=== PATIENT | female | born 1955 | race Caucasian/White ===

== ENCOUNTER 2021-05-25 22:30 | Emergency (ER) | payer OTHER, SELFPAY ==
--- NOTE | ~2021-05-25 | XR_ITS ---
XR chest 2V DATE: 05/25/2021 23:22 INDICATION: Left-sided chest pain, fever, shortness of breath TECHNIQUE: PA and lateral views COMPARISON: 01/22/2017 two-view chest FINDINGS: Normal heart size. Aortic calcification and unfolding. No hilar or mediastinal enlargement. No pulmonary infiltrate or consolidation, pleural effusion or pulmonary vascular congestion or pneum othorax. Status post cholecystectomy. IMPRESSION: No active cardiopulmonary disease Reviewed, dictated and finalized at location A.
[2021-05-25 22:33] VITALS: BP 152/103; PULSE 93; RESP 18; TEMP 36.2; O2SAT 96
--- NOTE | 2021-05-25 22:38 | ECG_ITS ---
Measurements Intervals Supply Rate: 94 P: 40 KS: 152 QRS: -14 QRSD: 66 T: 30 QT: 333 QTc: 417 Interpretive Statements SINUS RHYTHM LOW QRS VOLTAGE IN PRECORDIAL LEADS ANTEROSEPTAL INFARCT, AGE INDETERMINATE CONSIDER INFERIOR INFARCT, AGE INDETERMINATE ABNORMAL ECG Electronically Signed On 05-26-2021 6:42:47 CDT by Westley Ocampo D.O.
[2021-05-25 22:56] LABS: Glucose Point of Care 409 mg/dl (65-105)
[2021-05-25 23:04] LABS: Basophils Absolute Auto 0.1 K/mm3 (0.0-0.1); Basophils Percent Auto 0.5 % (0.2-1.2); Eosinophils Absolute Auto 0.3 K/mm3 (0-0.3); Eosinophils Percent Auto 2.6 % (0-4.4); Hemoglobin 14.2 g/dL (12.0-15.0); Immature Granulocyte Absolute 0.07 K/mm3 (0.00-0.031); Immature Granulocyte Percent A 0.5 % (0-0.5); Lymphocytes Percent Auto 20.9 % (18.3-44.2); Mean Corpuscular HGB Conc 32.3 g/dl (32-36); Mean Corpuscular Hemoglobin 27.8 pg (26-34); Mean Corpuscular Volume 86.1 fl (80-100); Mean Platelet Volume 9.7 fl (7.4-10.4); Monocytes Absolute Auto 0.8 K/mm3 (0.1-0.6); Monocytes Percent Auto 6.3 % (2.6-8.5); Neutrophils Percent Auto 69.2 % (45.5-73.1); Platelet Count Result 277 k/mm3 (150-375); Red Blood Count 5.11 M/mm3 (4.2-5.4); Red Cell Distribution Width 13.6 % (11.5-14.5); White Blood Count 12.9 K/mm3 (4.5-10.0)
[2021-05-25 23:14] LABS: INR 0.9; Lactic Acid Reflex 2.4 mmol/L (0.7-2.1); Prothrombin Time 11.7 Seconds (11.1-14.7)
[2021-05-25 23:15] LABS: Partial Thromboplastin Time 22.2 SECONDS (22.3-36.8)
[2021-05-25 23:18] LABS: Alanine Aminotransferase 21 U/L (4-35); Albumin Level 4.5 g/dL (3.5-5.1); Alkaline Phosphatase 153 U/L (38-126); Anion Gap 10 mmol/L (8-16); Aspartate Amino Transferase 20 U/L (14-36); Bilirubin,Total 0.3 mg/dL (0.2-1.3); Blood Urea Nitrogen 23 mg/dL (7-17); CRP 1.5 mg/dL (<1.0); Calcium 10.1 mg/dL (8.4-10.2); Carbon Dioxide 26 mmol/L (22-30); Chloride 97 mmol/L (98-107); Estimated CRCL calculation 59 ml/min; Estimated Glomerular Filt Rate > 60; Glucose 415 mg/dL (65-110); Potassium 4.5 mmol/L (3.4-5.0); Sodium 133 mmol/L (137-145)
[2021-05-25 23:57] VITALS: BP 160/90; PULSE 92; RESP 18; TEMP 36.7; O2SAT 99
[2021-05-26] VITALS (9 sets, daily range): BP systolic 149–168; BP diastolic 66–90; PULSE 80–92; RESP 15–19; O2SAT 97–100
--- NOTE | 2021-05-26 00:32 | ED.FEVER ---
HPI - Fever General Chief Complaint: Fever Stated Complaint: Fever Time Seen by Provider: 05/26/21 00:07 Source: patient History of Present Illness HPI Narrative: Reports 1 year worth of pain and itching most noted under her breast and abdomen. Reports a history of fungal infections which she has never able to completely resolved. Over the past few days she has noted associated fevers she was concerned about a worsening infection so came in for evaluation. Denies any cough or congestion. She reports pain with urination. She denies any diarrhea Related Data Allergies Allergy/AdvReac Type Severity Reaction Status Date / Time levofloxacin Allergy Unknown Itching Unverified 05/26/21 00:03 Review of Systems Review of Systems: CONSTITUTIONAL: Denies fever, chills, or sweats. EYES: Denies visual changes, redness, or discharge. ENT: Denies rhinorrhea, congestion, sore throat, or otalgia. CARDIOVASCULAR: Denies chest pain, palpitations, or edema. RESPIRATORY: Denies cough or dyspnea. GASTROINTESTINAL: Denies abdominal pain, nausea, vomiting, or diarrhea. GENITOURINARY: Denies hematuria. SKIN: Reports rash is erythematous painful and itching under her breasts and abdomen MUSCULOSKELETAL: Denies back pain, joint pain, or myalgia. NEUROLOGIC: Denies headache, numbness, dizziness, or weakness. PSYCHIATRIC: Denies anxiety or depression. All systems reviewed & are unremarkable except as noted in HPI and below Exam Narrative: GENERAL: Well-appearing, well-nourished, and in no acute distress. HEAD: Normocephalic, atraumatic. EYES: PERRLA and EOMI. ENT: Nares clear, no rhinorrhea or epistaxis. Mucous membranes moist. NECK: Supple. No masses. No JVD CHEST: Clear to auscultation. No respiratory distress. No wheezes rales or rhonchi HEART: Regular rate and rhythm. No murmur heard. Normal peripheral pulses. ABDOMEN: Soft, nontender, nondistended, normal active bowel sounds. EXTREMITIES: Normal range of motion. No edema. SKIN: Large area of erythema under the bilateral breasts and under the pannus of the abdomen with mild skin breakdown. There is no purulent material there is no draining wounds are no focal areas of fluctuance. Erythema is tender to palpation NEURO: No focal deficits. Alert and oriented x3. PSYCH: Normal mood and affect. Course Reevaluation(s) Reevaluation #1: Patient is resting comfortably feeling much improved. Results and plan reviewed with patient, both the outpatient plan. Date: 05/26/21 Time: 03:08 Vital Signs Vital signs: Vital Signs Temperature 36.2 C L 05/25/21 22:33 Pulse Rate 93 05/25/21 22:33 Respiratory Rate 18 05/25/21 22:33 Blood Pressure 152/103 H 05/25/21 22:33 Pulse Oximetry 96 05/25/21 22:33 Temperature 36.7 C 05/25/21 23:57 Pulse Rate 80 05/26/21 02:46 Respiratory Rate 18 05/26/21 02:46 Blood Pressure 155/79 H 05/26/21 02:46 Pulse Oximetry 97 05/26/21 02:46 MDM - Fever MDM Narrative Medical decision making narrative: H&P as above, vs mild hypertension, pt looks clinically well, exam with rash most concerning for Gaby infection, labs with leukocytosis and UA concerning for infection, labs also noted for elevated glucose and elevated lactate, imaging unremarkable, additional labs/img considered.primary concern was for urinary tract infection likely causing stress response and elevation and lactic acid. Patient was treated with fluids first dose of antibiotics given in the ER on reevaluation pt continues to looks clinically well, and repeat labs are improving suspect UTI, dns DKA. plan to tx/monitor as op w/ pcm f/u findings/plan discussed with pt, pt agree/comfortable with plan, return precautions given Lab Data Result diagrams: 05/25/21 22:52 05/25/21 22:52 Labs: Lab Results 05/25/21 05/25/21 05/25/21 Range/Units 22:52 22:52 22:52 WBC 12.9 H (4.5-10.0) K/mm3 RBC 5.11 (4.2-5.4) M/mm3 Hgb 14.2 (12.0-15.0) g/dL Hct
[2021-05-26 00:38] LABS: Add Urine Microscopic? YES; Appearance Urine Cloudy (Clear); Bacteria Urine Trace /hpf; Bilirubin Urine Negative (Negative); Blood Urine 2+ (Negative); Color Urine Yellow (Yellow); Glucose Urine UA 3+ mg/dL (Negative); Ketones Urine Negative (Negative); Leukocyte Esterase Ur 3+ LEU/UL (Negative); Mucus Urine Rare /lpf; Nitrate Urine Positive (Negative); Protein Urine 1+ mg/dL (Negative); Specific Grav Ur 1.018 (1.001-1.035); Squamous Epithelial Cell Urine Occasional /hpf (Few); Urobilinogen Urine Negative mg/dL (<2.0); WBC Urine >75 /hpf
[2021-05-26] MEDS: SODIUM CHLORIDE 0.9% IV 1,000 ML 999 ML IV CONT ×2 (00:49)
[2021-05-26 02:02] LABS: Reflex Lactic Acid Yes or No Add Lactic
[2021-05-26 02:27] LABS: Glucose Point of Care 270 mg/dl (65-105)
[2021-05-26 02:41] LABS: Lactic Acid 1.4 mmol/L (0.7-2.1)
== END 2021-05-26 03:49 | disposition home or self-care (01) ==
PROVIDERS: Family Medicine; Emergency Provider Emergency Medicine
DX: E11.65 Type 2 diabetes mellitus with hyperglycemia (principal); N30.01 Acute cystitis with hematuria; R94.31 Abnormal electrocardiogram [ECG] [EKG]
CPT/HCPCS: 36415; 71046; 80053; 81001; 82948; 83605; 85025; 85610; 85730; 86140; 87040; 87086; 87088; 93005; 96365; 99284; J0696; J7030